=== PATIENT | male | born 2005 | race Hispanic/Latino ===

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

== ENCOUNTER 2025-07-12 05:47 | Emergency (ER) | payer OTHER, SELFPAY ==
[2025-07-12] MEDS ORDERED: ACETAMINOPHEN 500 MG TAB ONE (06:17)
[2025-07-12 07:11] LABS: Influenza A Ag Negative; Influenza B Ag Negative; SARS-CoV-2 Antigen Rapid Res Negative (Negative)
--- NOTE | 2025-07-12 07:20 | ER ---
Nurse's Notes [facility] Name: Hema Vazquez Age: 20 yrs Sex: Male : 2005 Arrival Date: 07/12/2025 Time: 05:47 Bed 7 Private MD: Diagnosis: Streptococcal pharyngitis Presentation: 07/12 05:55 Chief complaint: Patient states: COUGH, NASAL CONGESTION, SORE THROAT, AND FEVER. ha1 05:55 Coronavirus screen: Client denies travel out of the [place] in the last 14 days. Ebola ha1 Screen: No symptoms or risks identified at this time. 05:55 Method Of Arrival: Ambulatory ha1 05:55 Initial Sepsis Screen: Does the patient meet any 2 criteria? No. Patient's initial ha1 sepsis screen is negative. Does the patient have a suspected source of infection? No. Patient's initial sepsis screen is negative. Risk Assessment: Do you want to hurt yourself or someone else? Patient reports no desire to harm self or others. Onset of symptoms was July 12, 2025. 05:55 Acuity: NAI 4 ha1 Triage Assessment: 06:15 General: Appears uncomfortable, Behavior is cooperative. Pain: Complains of pain in ha1 SORE THROAT. Neuro: Level of Consciousness is awake, alert, obeys commands, Oriented to person, place, time, situation. Cardiovascular: Patient's skin is warm and dry. Respiratory: Reports cough that is SORE THROAT, NASAL CONGESTION Airway is patent Trachea midline Respiratory effort is even, unlabored, Respiratory pattern is regular, symmetrical. Historical: - Allergies: 06:15 No Known Allergies; ha1 - PMHx: 06:15 None; ha1 - Immunization history:: Adult Immunizations up to date. - Infectious Disease History:: Denies. - Social history:: Smoking status: Patient denies any tobacco usage or history of. Screenin:22 [facility] ED Fall Risk Assessment (Adult) History of falling in the last 3 months, lg3 including since admission No falls in past 3 months (0 pts) Confusion or Disorientation No (0 pts) Intoxicated or Sedated No (0 pts) Impaired Gait No (0 pts) Mobility Assist Device Used No (0 pt) Altered Elimination No (0 pt) Score/Fall Risk Level 0 - 2 = Low Risk Oriented to surroundings, Maintained a safe environment, Educated pt \T\ family on fall prevention, incl call for assistance when getting out of bed, Assessed \T\ reinforced patient's understanding of fall precautions. Abuse screen: Denies threats or abuse. Denies injuries from another. Nutritional screening: No deficits noted. Tuberculosis screening: No symptoms or risk factors identified. Assessment: 06:22 General: Appears in no apparent distress. uncomfortable, Behavior is calm, cooperative. lg3 Pain: Complains of pain in throat. Neuro: No deficits noted. Simeon Agitation-Sedation Scale (RASS): 0 - Alert and Calm Level of Consciousness is awake, alert, obeys commands, Oriented to person, place, time, situation. Cardiovascular: No deficits noted. Denies chest pain, shortness of breath, Capillary refill < 3 seconds Clubbing of nail beds is absent JVD is absent Patient's skin is warm and dry. Respiratory: No deficits noted. Reports cough that is dry, persistent Breath sounds are clear bilaterally. Respiratory: Airway is patent Respiratory effort is even, unlabored, Respiratory pattern is regular, symmetrical. GI: No deficits noted. No signs and/or symptoms were reported involving the gastrointestinal system. : No signs and/or symptoms were reported regarding the genitourinary system. EENT: Reports nasal congestion pain when swallowing. Derm: No deficits noted. No signs and/or symptoms reported regarding the dermatologic system. Skin is intact, is healthy with good turgor, Skin is dry, Skin is normal, Skin temperature is warm. Musculoskeletal: No deficits noted. No signs and/or symptoms reported regarding the musculoskeletal system. Circulation, motion, and sensation intact. Range of motion: intact in all extremities. 07:14 General: Appears in no apparent distress. comfortable, Behavior is calm, cooperative, cm10 Assumed care of patient at this time. Pt resting on stretcher, family at bedside. Pt updated on plan of care. Call light in reach.. Neuro: No deficits noted. Level of Consciousness is awake, alert, Oriented to person, place, time, situation. Respiratory: No deficits noted. Airway is patent Respiratory effort is even, unlabored, Respiratory pattern is regular, symmetrical. EENT: Reports pain when swallowing. Vital Signs: 05:55 BP 120 / 105; Pulse 80; Resp 18 S; Temp 100.5; Pulse Ox 99% on R/A; Weight 81.65 kg; ha1 Height 5 ft. 6 in. ; Pain 5/10; 06:28 BP 124 / 69; Pulse 70; Resp 18; Pulse Ox 95% on R/A; kb4 07:13 BP 119 / 74; Pulse 74; Resp 16; Temp 98.9(O); Pulse Ox 100% ; cm10 05:55 Body Mass Index 29.05 (81.65 kg, 167.64 cm) - Percentile 92.0 % ha1 05:55 Pain Scale: Adult 1 ED Course: 05:53 Patient arrived in ED. gm2 06:11 Marzena Agrawal, RN is Primary Nurse. al5 06:11 Francis Dan DO is Attending Physician. al5 06:15 Triage completed. ha1 06:22 Patient has correct armband on for positive identification. Bed in low position. Call lg3 light in reach. Side rails up X 1. Client placed on continuous cardiac and pulse oximetry monitoring. NIBP monitoring applied. Door closed. Noise minimized. Warm blanket given. Pillow given. Family accompanied patient. 06:22 COVID swab sent to lab. Flu and/or RSV swab sent to lab. Strep swab sent to lab. lg3 06:45 No provider procedures requiring assistance completed. al5 07:08 Primary Nurse role handed off by Marzena Agrawal, ALBERTO cm10 07:08 Katie Perkins, ALBERTO is Primary Nurse. cm10 07:18 Patient did not have IV access during this emergency room visit. cm10 07:36 Provided Education on: Follow-up instructions. cm10 07:36 Arm band placed on. cm10 Administered Medications: 06:21 Drug: Acetaminophen PO 1000 mg PO once Route: PO; lg3 07:21 Follow up: Response: No adverse reaction; Temperature is decreased cm10 07:22 Not Given (Duplicate Order): dexamethasone6 mg PO once cm10 07:35 Drug: Amoxicillin PO 875 mg PO once Route: PO; cm10 07:35 Follow up: Response: Medication administered at discharge. cm10 07:35 Drug: Dexamethasone PO 10 mg PO once Route: PO; cm10 07:35 Follow up: Response: Medication administered at discharge. cm10 Medication: 06:22 VIS not applicable for this client. lg3 Outcome: 07:20 Discharge ordered by . tt7 07:35 Discharged to home ambulatory, cm10 07:35 Condition: good 07:35 Discharge instructions given to patient, Instructed on discharge instructions, follow up and referral plans. medication usage, Demonstrated understanding of instructions, follow-up care, medications, Prescriptions given X 1, 07:36 Patient left the ED. cm10 Signatures: Trinh Perdomo, RN RN lg3 Marina Field RN RN ha1 Katie Perkins RN RN cm10 Christi Barrientos 2 Marzena Agrawal RN RN al5 Venus Ruiz RN RN kb4 Francis Dan DO DO tt7 Corrections: (The following items were deleted from the chart) 06:28 06:27 BP 106 / 51; Pulse 79bpm; Resp 18bpm; Pulse Ox 97% RA; kb4 kb4
--- NOTE | 2025-07-12 07:20 | EDPHYS ---
Physician Documentation [facility] Name: Hema Vazquez Age: 20 yrs Sex: Male : 2005 Arrival Date: 07/12/2025 Time: 05:47 Bed 7 Private MD: ED Physician Francis Dan HPI: 07/12 07:33 This 20 yrs old Male presents to ER via Ambulatory with complaints of tt7 headache, sore throat. 07:33 Patient reports symptoms of generalized diffuse mild achy headache for the past 2 to 3 tt7 days, he has also been having a sore throat with some discomfort with swallowing, he started to have a nonproductive cough yesterday, he has no significant past medical history, he denies sick contacts, he denies chest pain or shortness of breath. Historical: - Allergies: 06:15 No Known Allergies; ha1 - PMHx: 06:15 None; ha1 - Immunization history:: Adult Immunizations up to date. - Infectious Disease History:: Denies. - Social history:: Smoking status: Patient denies any tobacco usage or history of. ROS: 07:35 Constitutional: Positive for fever. Cardiovascular: negative for chest pain. tt7 Respiratory: negative for shortness of breath. Abdomen/GI: negative for abdominal pain, nausea, vomiting, diarrhea. MS/Extremity: negative for injury and deformity. Skin: negative for rash. Neuro: negative for focal weakness. Exam: 07:35 Constitutional: vital signs reviewed, well appearing. Head/Face: normocephalic, tt7 atraumatic. Eyes: no conjunctival injection, anicteric sclerae. ENT: mucus membranes moist, mild posterior oropharyngeal erythema without tonsillar exudates, uvula midline, no evidence of peritonsillar abscess. Cardiovascular: regular rate and rhythm, no murmurs, no rubs, no lower extremity edema. Respiratory: normal respiratory effort, no accessory muscle use, lungs CTAB. Abdomen/GI: soft, nondistended, nontender, no guarding or rebound, negative Sheth's sign, no McBurney point tenderness. Back: normal ROM. Skin: warm, dry, intact, normal turgor, normal color, no rash. MS/ Extremity: normal ROM of extremities, no gross deformities. Neuro: alert and oriented with appropriate mental status, normal speech, follows commands, no focal neurologic deficits. Psych: appropriate mood and affect. Vital Signs: 05:55 BP 120 / 105; Pulse 80; Resp 18 S; Temp 100.5; Pulse Ox 99% on R/A; Weight 81.65 kg; ha1 Height 5 ft. 6 in. ; Pain 5/10; 06:28 BP 124 / 69; Pulse 70; Resp 18; Pulse Ox 95% on R/A; kb4 07:13 BP 119 / 74; Pulse 74; Resp 16; Temp 98.9(O); Pulse Ox 100% ; cm10 05:55 Body Mass Index 29.05 (81.65 kg, 167.64 cm) - Percentile 92.0 % ha1 05:55 Pain Scale: Adult ha1 MDM: 06:13 Medical Screening Exam initiated tt7 07:37 Differential Diagnosis: Bronchitis Influenza Upper Respiratory Infection Pharyngitis tt7 Viral Syndrome. Data reviewed: vital signs, nurses notes, lab test result(s). ED course: No evidence of peritonsillar abscess, strep antigen positive, patient's fever was treated with acetaminophen, repeat temperature and fever has resolved, patient treated with oral dexamethasone and amoxicillin, discharged with course of amoxicillin, after completion of the patient's emergency department evaluation, I do not suspect a life-threatening or disabling process. Patient is medically stable and not in need of emergent medical intervention. I had a detailed discussion with the patient regarding the historical points, exam findings, emergency department evaluation, diagnostic results, and the discharge diagnosis. I instructed the patient on outpatient management of their condition. I discussed the need for outpatient follow-up with a primary care physician. I informed the patient on return precautions, including the need to return to the ED if symptoms do not improve, worsen, or if there are any questions or concerns that arise at home. The patient was discharged in stable condition. 07/12 06:11 Order name: COVID-19 Ag + Flu A+B Ag; Complete Time: 07:17 al5 07/12 06:11 Order name: Group A Streptococcus Rapid; Complete Time: 07:17 al5 Administered Medications: 06:21 Drug: Acetaminophen PO 1000 mg PO once Route: PO; lg3 07:21 Follow up: Response: No adverse reaction; Temperature is decreased cm10 07:22 Not Given (Duplicate Order): dexamethasone6 mg PO once cm10 07:35 Drug: Amoxicillin PO 875 mg PO once Route: PO; 10 07:35 Follow up: Response: Medication administered at discharge. cm10 07:35 Drug: Dexamethasone PO 10 mg PO once Route: PO; cm10 07:35 Follow up: Response: Medication administered at discharge. 10 Disposition: 07:39 Co-signature as Attending Physician, Francis Dan DO. tt7 Disposition Summary: 07/12/25 07:20 Discharge Ordered Notes: Location: Home tt7 Problem: new tt7 Symptoms: have improved tt7 Condition: Stable tt7 Diagnosis - Streptococcal pharyngitis tt7 Followup: tt7 - With: Emergency Department - When: As needed - Reason: Followup: tt7 - With: Private Physician - When: 1 - 2 days - Reason: Recheck today's complaints, Re-evaluation by your physician Discharge Instructions: - Discharge Summary Sheet tt7 - Strep Throat, Adult, [id number] tt7 Forms: - Medication Reconciliation Form tt7 - Antibiotic Education tt7 - Prescription Opioid Use tt7 - Patient Portal Instructions tt7 - Leadership Thank You Letter tt7 Prescriptions: - Amoxicillin 875 mg Oral Tablet - take 1 tablet ORAL route every 12 hours for 10 days; 20 tablet; Refills: 0, tt7 Product Selection Permitted Signatures: Dispatcher [employer] EDTrinh Basurto RN RN [email or web address] Marina Field RN RN ha1 Katie Perkins RN RN cm10 Francis Dan DO DO tt7 Corrections: (The following items were deleted from the chart) 06:12 06:12 COVID-19 Ag + Flu A+B Ag+[id number].LAB.BRZ ordered. EDMS EDMS 06:12 06:12 Group A Streptococcus Rapid Sc+I.LAB.BRZ ordered. EDMS EDMS
[2025-07-12] MEDS ORDERED: AMOXICILLIN TRIHYDR 250 MG CAP ONE (07:29)
[2025-07-12 07:54] VITALS: BP 119/74; TEMP 98.9; O2SAT 100
== END 2025-07-12 07:36 | disposition home or self-care (01) ==
LOC: ER 05:47
DX: J02.0 Streptococcal pharyngitis (principal); Z11.52 Encounter for screening for COVID-19
CPT/HCPCS: 36415; 87428; 99284; J1100